=== PATIENT | female | born 1960 ===

== ENCOUNTER 2024-11-24 08:06 | Inpatient (IN) | payer OTHER ==
[~2024-11-24] VITALS: Ht 121.9 cm; Wt 87.1 kg
[2024-11-24] MEDS ORDERED: CRESTOR40 MG (08:42)
[2024-12-02] MEDS ORDERED: LIDOCAINE HCL 1%/EPINEPHRINE 20ML VIAL IJ ONE (07:46)
[2024-12-02] MEDS ORDERED: BUPIVACAINE HCL/Mpf 0.5% 10ML VIAL ONE (07:46)
[2024-12-02] MEDS ORDERED: CEFTRIAXONE SODIUM 2,000 MG VIAL ONE (07:46)
[2024-12-02] MEDS ORDERED: METRONIDAZOLE/SODIUM CHLORIDE 500 MG/100 ML PIGGYBACK IV ONE (07:46)
[2024-12-02] MEDS ORDERED: HEMOSTATIC MATRIX 1 KIT KIT TOP ONE (07:47)
[2024-12-02] MEDS ORDERED: POVIDONE-IODINE 118 ML BOTT TOP ONE (07:47)
[2024-12-02] MEDS ORDERED: DIBUCAINE 30 GM TUBE ONE (07:47)
[2024-12-02] MEDS ORDERED: SUGAMMADEX SODIUM 200 MG/2 ML VIAL IV ONE (08:32)
[2024-12-02] MEDS ORDERED: FAMOTIDINE/PF 20 MG/2 ML VIAL IV PUSH SCH (09:00)
[2024-12-02] MEDS ORDERED: ONDANSETRON HCL 2 MG/ML VIAL IV PRN (09:00)
[2024-12-02] MEDS ORDERED: 0.9 % SODIUM CHLORIDE 1,000 ML IV SCH (09:00)
[2024-12-02] MEDS ORDERED: MORPHINE SULFATE 4 MG/ML CARTRIDGE IV PRN (09:00)
[2024-12-02] MEDS ORDERED: HYOSCYAMINE SULFATE 0.125 MG TAB.SUBL SL SCH (09:00)
[2024-12-02] MEDS ORDERED: DEXTROSE 50 % IN WATER 0.5 G/ML DISP.SYRIN IV PRN (09:00)
[2024-12-02] MEDS ORDERED: GABAPENTIN 300 MG CAPSULE PO SCH (09:00)
[2024-12-02] MEDS ORDERED: OxyCODONE HCL 5 MG TABLET (ROXICODONE) PO PRN (09:00)
[2024-12-02] MEDS ORDERED: CELECOXIB 200 MG CAPSULE PO SCH (09:00)
[2024-12-02 09:43] LABS: HEMATOCRIT 35.4 % (36.0-45.00); HEMOGLOBIN 12.6 g/dL (12.0-15.00); MEAN CELL VOLUME 88.6 fL (80.00-100.00); MEAN CORPUSCULAR HEMOGLOBIN 31.5 pg (27.00-32.0); MEAN CORPUSCULAR HGB CONC 35.5 g/dl (32.0-36.0); PLATELET COUNT 295 K/uL (150-450)
[2024-12-02] MEDS ORDERED: MORPHINE SULFATE 4 MG/ML VIAL IV ONE (10:00)
[2024-12-02 10:53] LABS: ALBUMIN 3.4 gm/dL (3.4-5.0); CALCIUM 8.7 mg/dL (8.5-10.1); CREATININE SERUM 0.77 mg/dL (0.55-1.02); GFR 75.96; MAGNESIUM 2.2 mg/dL (1.8-2.4); PHOSPHOROUS 3.7 mg/dL (2.5-4.9); POTASSIUM 3.83 mEq/L (3.5-5.1)
[2024-12-02] MEDS ORDERED: FAMOTIDINE/PF 20 MG/2 ML VIAL ONE (10:56)
[2024-12-02] MEDS ORDERED: ACETAMINOPHEN 500 MG GEL..CAP PO SCH (14:00)
[2024-12-02 16:00] VITALS: BP 145/80; O2SAT 98
[2024-12-02] MEDS ORDERED: POLYETHYLENE GLYCOL 3350 17 GM BLIST.PACK PO SCH (17:00)
[2024-12-03 00:29] VITALS: BP 107/71; O2SAT 98
[2024-12-03 06:44] LABS: HEMATOCRIT 36.9 % (36.0-45.00); HEMOGLOBIN 12.3 g/dL (12.0-15.00); MEAN CELL VOLUME 90.4 fL (80.00-100.00); MEAN CORPUSCULAR HEMOGLOBIN 30.1 pg (27.00-32.0); MEAN CORPUSCULAR HGB CONC 33.3 g/dl (32.0-36.0); PLATELET COUNT 288 K/uL (150-450); RED BLOOD COUNT 4.08 M/uL (4.00-6.00); RED CELL DISTRIBUTION WIDTH 13.3 % (11.5-14.5)
[2024-12-03 07:17] LABS: CALCIUM 8.2 mg/dL (8.5-10.1); CREATININE SERUM 0.71 mg/dL (0.55-1.02); GFR 83.41; MAGNESIUM 2.1 mg/dL (1.8-2.4); PHOSPHOROUS 3.3 mg/dL (2.5-4.9); POTASSIUM 3.9 mEq/L (3.5-5.1)
[2024-12-03] MEDS ORDERED: TRAM1TAB98 PO (07:59)
[2024-12-03] MEDS ORDERED: PEPCID AC20 MG PO (07:59)
[2024-12-03 08:33] VITALS: BP 128/72; O2SAT 96
[2024-12-03] MEDS ORDERED: ENOXAPARIN SODIUM 40 MG/0.4 ML SYRINGE SUBCUTANEO SCH (17:00)
[2024-12-03] MEDS ORDERED: PATIENTS OWN MEDICATION (MEDICAMENTO EN PISO) PO SCH (17:00)
[2024-12-04] MEDS ORDERED: ENOXAPARIN SODIUM 40 MG/0.4 ML SYRINGE SUBCUTANEO SCH (09:00)
== END 2024-12-03 09:56 | disposition home or self-care (01) | DRG 376 ==
LOC: O/R 12-02 05:30 → SURH 12-02 05:30
PROVIDERS: ADMIT Surgery; ATTEND Surgery
PROC: 3E0T3BZ Introduction of Anesthetic Agent into Peripheral Nerves and Plexi, Percutaneous Approach (ICD-10-PCS; 2024-12-02)
PROC: 0DBP8ZZ Excision of Rectum, Via Natural or Artificial Opening Endoscopic (ICD-10-PCS; principal; 2024-12-02 10:45)
DX: C20 Malignant neoplasm of rectum (principal); D37.5 Neoplasm of uncertain behavior of rectum; E78.00 Pure hypercholesterolemia, unspecified; E66.9 Obesity, unspecified
CPT/HCPCS: 0184T; 64430